=== PATIENT | male | born 1960 | race Caucasian/White ===

== ENCOUNTER 2016-12-01 02:16 | Emergency (ER) | payer OTHER ==
[~2016-12-01] VITALS: Ht 185.4 cm; Wt 113.4 kg
[2016-12-01 02:42] VITALS: BP 157/92
== END 2016-12-01 06:52 | disposition home or self-care (01) ==
LOC: ER 02:23
DX: J20.9 Acute bronchitis, unspecified (principal); J98.11 Atelectasis; R91.8 Other nonspecific abnormal finding of lung field
CPT/HCPCS: 71020